=== PATIENT | male | born 1955 | race Caucasian/White ===

== ENCOUNTER 2021-08-11 09:49 | Emergency (ER) | payer MEDICARE, MEDICAID, SELFPAY ==
[2021-08-11 09:59] VITALS: BP 242/118; PULSE 93; RESP 18; TEMP 36.5; O2SAT 97
--- NOTE | 2021-08-11 10:06 | XRR_ITS ---
PROCEDURE INFORMATION: Exam: XR Chest Exam date and time: 08/11/2021 10:26 AM Age: 65 years old Clinical indication: Other: Accelerated HTN; Patient HX: TIA, left sided weakness TECHNIQUE: Imaging protocol: XR of the chest. Views: 1 view. COMPARISON: No relevant prior studies available. FINDINGS: Lungs: Unremarkable. No consolidation. Pleural spaces: Unremarkable. No pleural effusion. No pneumothorax. Heart/Mediastinum: Unremarkable. No cardiomegaly. Bones/joints: Unremarkable. XR/XR chest 1V portable [id number] IMPRESSION: No acute findings.
--- NOTE | 2021-08-11 10:06 | ECG_ITS ---
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 Measurements Intervals [place] Rate: 98 P: 39 NE: 159 QRS: 1 QRSD: 94 T: 143 QT: 366 QTc: 468 Interpretive Statements SINUS RHYTHM LEFT VENTRICULAR HYPERTROPHY AND ST-T CHANGE [VOLTAGE CRITERIA PLUS ST/T ABNORMALITY] No previous ECG available for comparison Electronically Signed On 08-11-2021 16:24:10 CDT by Beck Hale M.D. [id number]
--- NOTE | 2021-08-11 10:06 | CT_ITS ---
WS: [id number] CT HEAD TECHNIQUE: Noncontrast CT of the head obtained from the skullbase to the vertex. CLINICAL INFORMATION: Symptoms of Acute Stroke COMPARISON: CT September 02, 2017 DLP: 987.[address] scans at [facility] use at least one of these dose optimization techniques: automated e xposure control; mA and/or kV adjustment per patient size (includes targeted exams where dose is matc hed to clinical indication); or iterative reconstruction. FINDINGS: No evidence of intracranial hemorrhage or mass effect. Ventricular system and basal cisterns are bahena nt. Moderate small vessel changes with mild parenchymal volume loss. No extra-axial fluid collections . No evidence of mass or mass effect. Intracranial vascular calcification. Chronic lacunar infarcts i n the LEFT greater than RIGHT cerebellum. Chronic lacunar infarcts in the RIGHT greater than LEFT bas al ganglia and RIGHT anterior thalamus. Chronic lacunar infarcts in the LEFT greater than RIGHT cereb ellum. Some of these are new since 2018 but have a chronic appearance. 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 Paranasal sinuses and mastoid air cells are well aerated. .Normal visualized soft tissues. CT/CT head wo con* [id number] IMPRESSION: 1. No evidence of intracranial hemorrhage or mass effect. 2. Moderate small vessel changes. Mild parenchymal volume loss. 3. Chronic lacunar infarcts in the RIGHT greater than LEFT basal ganglia and a nterior RIGHT thalamus. Chronic lacunar infarcts in the charla and cerebellum 4. No acute intracranial findings. Notified Luke Mata DO at 08/11/2021 11:10 AM.
[2021-08-11 10:08] VITALS: BP 227/135; PULSE 105; RESP 16; O2SAT 97
[2021-08-11] MEDS: metoprolol tartrate 25 mg Tablet PO (10:14)
[2021-08-11] MEDS: amlodipine 10 mg Tablet PO (10:14)
[2021-08-11 10:17] LABS: Glucose Point of Care 315 mg/dL (70-110)
[2021-08-11 10:17] LABS: Basophils % 0.6 %; Eosinophils # 0.2 10^3/uL (0.0-0.8); Eosinophils % 2.2 %; Hematocrit 50.2 % (42.0-52.0); Hemoglobin 17.8 g/dL (11.7-16.6); Mean Corpuscular HGB Conc 35.5 g/dL (30.0-36.0); Mean Corpuscular Hemoglobin 30.7 pg (28.0-34.0); Mean Corpuscular Volume 86.6 fl (80-94); Mean Platelet Volume 10.9 fL (7.4-10.4); Monocytes # 0.6 10^3/uL (0.2-0.9); Monocytes % 7.7 %; Neutrophils # 4.38 10^3/uL (1.8-7.7); Neutrophils % 60.9 %; Nucleated Red Blood Cells % 0 %; Platelet Count 196 10^3/cmm (130-400); Red Cell Distribution Width 11.9 % (12.1-15.1); White Blood Count 7.2 10^3/uL (4.0-10.0)
[2021-08-11 10:25] LABS: Add Urine Microscopic? NO; Charge for UA Resulting for Rev
[2021-08-11 10:27] LABS: Protein Urine Neg (Negative); Urine Appearance Clear (CLEAR); Urine Color Yellow (Yellow); pH Urine 7 (5-7)
[2021-08-11 10:28] LABS: Bilirubin Urine Neg (Negative); Blood Urine Neg (Negative); Glucose Urine UA 4+ (Normal); Ketones Urine Negative (Negative); Leukocyte Esterase Urine Negative (Negative); Nitrate Urine Negative (Negative); Urobilinogen Urine Norm (Negative)
[2021-08-11 10:36] LABS: Amphetamines Screen Urine Negative (Negative); Barbiturates Screen Urine Negative (Negative); Benzodiazepines Screen Urine Negative (Negative); Cocaine Screen Urine Negative (Negative); Opiate Screen Urine Negative (Negative); PCP Screen Urine Negative (Negative); THC Screen Urine Negative (Negative)
--- NOTE | 2021-08-11 10:52 | PC.PHAR ---
pt states he takes care of his own medications-pt states he use to take lisinopril pt states not taken for a year or so and is unsure of the mg-ext med history doesnt show when last filled-pt states he only takes the medications entered
--- NOTE | 2021-08-11 10:53 | PC.NURSE ---
green top lab redrawn, then pt to CT
[2021-08-11] MEDS: labetalol 5 mg/mL SDV 20mL 10 MG IVP (11:04)
[2021-08-11 11:07] VITALS: BP 193/110; PULSE 77; RESP 17; O2SAT 95
--- NOTE | 2021-08-11 11:50 | ED_ITS ---
HPI - Neuro Symptoms/Deficit General: Chief Complaint: Neuro Symptoms/Deficit Stated Complaint: TIA, LEFT SIDED WEAKNESS, RESOLVED Time Seen by Provider: 08/11/21 09:50 Source: patient Mode of arrival: ambulatory Limitations: no limitations History of Present Illness: 65-year-old male presents emergency room complaining left-sided weakness he states this began somewhere around 7 to 8 days ago. He also states he had a stroke in the past the left with him some residual weakness. He states that this time it is pretty much resolved. He demonstrates good use of the left side on exam. Noted to be using a cell phone with his left hand because his right hand has an IV. Patient is not on any anticoagulants. He states he only takes aspirin occasionally. Onset (ago): day(s) (7-8) Timing confirmed by: spouse Location: left arm and left leg History of same: Yes Severity: moderate Quality: weak Relieving factors: none Exacerbating factors: none On Anticoagulants: No Associated symptoms: Deny chest pain, malaise, nausea or vomiting Treatments Prior to Arrival: none Review of Systems Const: Denies: fever(s), chills, body aches, change in appetite, fatigue or malaise ENMT: Denies: throat pain, ear or mastoid pain, nasal discharge or nasal congestion Card: Denies: chest pain, palpitations, irregular heart rhythm, edema, dyspnea on exertion or orthopnea Resp: Denies: dyspnea, productive cough or non-productive cough GI: Denies: abdominal pain, nausea, vomiting, hematemesis, coffee ground emes is, diarrhea, constipation, bloating, hematochezia or melena : Denies: flank pain, dysuria, urinary frequency or urinary urgency Skin/Breast: Denies: rash or pruritus [facility] PFSH: Medical History CVA (cerebral vascular accident) Hypertension NIH stroke score NIHSS: Level Of Consciousness - 1a: 0 Level Of Consciousness Questions - 1b: Both Correct Level Of Consciousness Commands - 1c: Both Correct Best G aze - 2: Normal Visual Monahan - 3: No Visual Loss Facial Palsy - 4: Normal Motor Arm Right - 5: No Drift Motor Arm Left - 5: No Drift Motor Leg Right - 6: No Drift Motor Leg Left - 6: No Drift Limb Ataxia - 7: Absent Sensory - 8: Mild To Moderate Loss (May be pre-existing from his previous CVA) Best Language - 9: No Aphasia Dysarthia - 10: Normal Extinction And Inattention - 11: 0 Score: Total Score: 1 Physical Exam Const: COMMON NORMALS: no acute distress GENERAL APPEARANCE: cooperative and comfortable ORIENTATION/CONSCIOUSNESS: Yes awake, Yes oriented to person, Yes oriented to place and Yes oriented to time HENMT: COMMON NORMALS: normocephalic, atraumatic and hearing grossly normal bilaterally HEAD & SCALP: normocephalic and atraumatic Neck/C-Spine: COMMON NORMALS: no JVD Resp: COMMON NORMALS: normal respiratory effort, No retractions, No use of accessory muscles and clear to auscultation bilaterally AUSCULTATION: clear to auscultation bilaterally Cardio: COMMON NORMALS: no JVD, regular rate, regular rhythm and No murmurs present (Cardio) RATE: regular rate RHYTHM: regular rhythm GI: COMMON NORMALS: Soft to palpation and No hepatosplenomegaly present AUSCULTATION: Yes normoactive bowel sounds PALPATION: Yes Soft to palpation, No Tenderness to palpation present (GI), No Guarding due to palpation present (GI) and Yes No hepatosplenomegaly present Extremity: COMMON NORMALS: normal to inspection, capillary refill normal, no clubbing, cyanosis or edema, no calf tenderness and no pedal edema Neuro: SENSORIUM/ORIENTATION: Yes oriented to person, Yes oriented to place and Yes oriented to time Skin: COMMON NORMALS: no rashes or lesions noted GENERAL SKIN EXAM: no rashes or lesions noted Course Vital Signs: Vital signs: Vital Signs Temperature 97.7 F 08/11/21 09:59 Pulse Rate 70 08/11/21 14:14 Respiratory Rate 16 08/11/21 14:14 Blood Pressure 187/103 08/11/21 14:14 Pulse Oximetry 97 08/11/21 14:14 MDM - Neuro Symptoms/Deficit Medical Decision Making Suspect patient may have had a new CVA. He is 7 to 8 days since onset of symptoms. Is difficult to score because he is a previous CVA. He is also diabetic his blood pressure is very poorly controlled. Recommended that we put him on observation to further evaluate complete the work-up and initiate treatments for his diabetes hypertension. Patient does not want to stay offered him several times he prefers to go home we will start him on metformin for his diabetes valsartan because he previously had an LAZARA inhibitor cough also will add amlodipine. Start dual platelet therapy with Plavix and aspirin and start him on a statin. Offered a second time for the patient to stay he prefer still prefer to go discharged patient home per his request set him up for a PCP also set him up for outpatient evaluation including MRI echocardiogram 48-hour Holter. He should return if he has any further problems. Medical Records I reviewed the patient's medical records. Lab Data I reviewed the patient's lab results. : 08/11/21 10:04 08/11/21 10:51 Radiology Impressions Chest X-Ray 08/11/21 10:06 IMPRESSION: No acute findings. Head CT 08/11/21 10:06 IMPRESSION: 1. No evidence of intracranial hemorrhage or mass effect. 2. Moderate small vessel changes. Mild parenchymal volume loss. 3. Chronic lacunar infarcts in the RIGHT greater than LEFT basal ganglia and anterior RIGHT thalamus. Chronic lacunar infarcts in the charla and cerebellum 4. No acute intracranial findings. Notified Luke Mata DO at 08/11/2021 11:10 AM. Head/Neck CTA 08/11/21 11:53 IMPRESSION: 1. No significant ICA stenosis bilaterally. Tortuous cervical ICAs. 2. Both vertebral arteries are patent. Proximal basilar artery is patent. 3. Mild stenosis involving the bilateral P1 and P2 segments. Distal vessels remain patent. 4. Mild RIGHT greater than LEFT supraclinoid ICA stenosis. No flow-limiting intracranial stenosis. 5. Asymmetric prominence of the RIGHT palatine tonsil partially visualized. Dental artifact degrades images at the tongue base. Recommend direct visualization. Laboratory Results WBC 7.2 10^3/uL (4.0-10.0) 08/11/21 10:04 RBC 5.80 10^6/uL (4.1-5.3) H 08/11/21 10:04 Hgb 17.8 g/dL (11.7-16.6) H 08/11/21 10:04 Hct 50.2 % (42.0-52.0) 08/11/21 10:04 MCV 86.6 fl (80-94) 08/11/21 10:04 MCH 30.7 pg (28.0-34.0) 08/11/21 10:04 MCHC 35.5 g/dL (30.0-36.0) 08/11/21 10:04 RDW 11.9 % (12.1-15.1) L 08/11/21 10:04 Plt Count 196 10^3/cmm (130-400) 08/11/21 10:04 MPV 10.9 fL (7.4-10.4) H 08/11/21 10:04 Neut % (Auto) 60.9 % 08/11/21 10:04 Lymph % (Auto) 28.0 % 08/11/21 10:04 [place] % (Auto) 7.7 % 08/11/21 10:04 Eos % (Auto) 2.2 % 08/11/21 10:04 Baso % (Auto) 0.6 % 08/11/21 10:04 Neut # (Auto) 4.38 10^3/uL (1.8-7.7) 08/11/21 10:04 Lymph # (Auto) 2.0 10^3/uL (0.8-4.8) 08/11/21 10:04 [place] # (Auto) 0.6 10^3/uL (0.2-0.9) 08/11/21 10:04 Eos # (Auto) 0.2 10^3/uL (0.0-0.8) 08/11/21 10:04 Baso # (Auto) 0.0 10^3/uL (0.0-0.1) 08/11/21 10:04 Nucleated RBC % (auto) 0 % 08/11/21 10:04 Nucleated RBCs # 0.0 /100WBC 08/11/21 10:04 PT 13.90 SECONDS (12.1-14.9) 08/11/21 12:22 INR 1.04 (0.8-1.2) 08/11/21 12:22 APTT 26.7 SECONDS (23.9-36.7) 08/11/21 12:22 Sodium 135 mmol/L (136-145) L 08/11/21 10:51 Potassium 3.8 mmol/L (3.5-5.1) 08/11/21 10:51 Chloride 99 mmol/L (98-107) 08/11/21 10:51 Carbon Dioxide 25 mmol/L (22-29) 08/11/21 10:51 Anion Gap 14.8 (5-19) 08/11/21 10:51 BUN 8 mg/dL (8-23) 08/11/21 10:51 Creatinine 0.7 mg/dL (0.7-1.2) 08/11/21 10:51 GFR Calculation 113.9 mL/min (90-130) 08/11/21 10:51 Glucose 306 mg/dL (65-115) H 08/11/21 10:51 POC Glucose 315 mg/dL (70-110) H 08/11/21 10:14 Calculated Osmolality 290 mOsm/kg (285-295) 08/11/21 10:51 Calcium 8.8 mg/dL (8.5-10.5) 08/11/21 10:51 Total Bilirubin 0.8 mg/dL (0.15-1.2) 08/11/21 10:51 AST 11 U/L (0-40) 08/11/21 10:51 ALT 9 U/L (0-41) 08/11/21 10:51 Alkaline Phosphatase 103 IU/L (40-130) 08/11/21 10:51 Total Protein 7.8 g/dL (6.6-8.7) 08/11/21 10:51 Albumin 4.3 g/dL (3.5-5.2) 08/11/21 10:51 Globulin 3.5 g/dL (1.3-4.6) 08/11/21 10:51 Urine Color Yellow (Yellow) 08/11/21 10:23 Urine Appearance Clear (CLEAR) 08/11/21 10:23 Urine pH 7 (5-7) 08/11/21 10:23 Ur Specific [place] 1.010 (1.005-1.030) 08/11/21 10:23 Urine Protein Neg (Negative) 08/11/21 10:23 Urine Glucose (UA) 4+ (Normal) H 08/11/21 10:23 Urine Ketones Negative (Negative) 08/11/21 10:23 Urine Blood Neg (Negative) 08/11/21 10:23 Urine Nitrate Negative (Negative) 08/11/21 10:23 Urine Bilirubin Neg (Negative) 08/11/21 10:23 Urine Urobilinogen Norm mg/dL (Negative) 08/11/21 10:23 Ur Leukocyte Esterase Negative (Negative) 08/11/21 10:23 Urine Opiates Screen Negative ng/mL (Negative) 08/11/21 10:23 Ur Barbiturates Screen Negative ng/mL (Negative) 08/11/21 10:23 Ur Phencyclidine Scrn Negative ng/mL (Negative) 08/11/21 10:23 Ur Amphetamines Screen Negative ng/mL (Negative) 08/11/21 10:23 U Benzodiazepines Scrn Negative ng/mL (Negative) 08/11/21 10:23 Urine Cocaine Screen Negative ng/mL (Negative) 08/11/21 10:23 U Marijuana (THC) Screen Negative ng/mL (Negative) 08/11/21 10:23 Discharge Plan Discharge Patient Disposition: Home Clinical Impression: CVA (cerebral vascular accident), Diabetes mellitus, Hypertension Condition: Stable Prescriptions: New metformin 500 mg tablet 500 mg PO BID Qty: 60 0RF Diovan 80 mg tablet 80 mg PO DAILY Qty: 30 0RF amlodipine 10 mg tablet 10 mg PO DAILY Qty: 30 0RF Plavix 75 mg tablet 75 mg PO DAILY Qty: 30 0RF atorvastatin 40 mg tablet 40 mg PO DAILY Qty: 30 0RF aspirin 81 mg tablet,delayed release (DR/EC) 81 mg PO DAILY Qty: 30 0RF No Action Aspir-81 81 mg Tablet,Delayed Release (Dr/Ec) 81 mg PO QAM 0RF ginkgo biloba 1 tab PO QAM 0RF Discharge Orders: Discharge ED (Routine); Ordered 08/11/21 Ordered By: Luke Mata Discharge Diet: Usual diet Discharge Activity: Limit activity as instructed Patient Instructions: Opioid Safety Activity Restrictions/Additional Instructions: 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 They also schedule an outpatient echocardiogram MRI of the head Holter monitor. You need to establish with a primary care doctor to make maintain control of your blood pressure and treat your diabetes. If you have any worsening or change symptoms feel free to return to the emergency room at any time. Coding Level of Care Code ED Slasher Operator for Johnny Hernandez Exam Comprehensive
--- NOTE | 2021-08-11 11:53 | CT_ITS ---
WS: [id number] CTA HEAD AND NECK TECHNIQUE: Contrast enhanced CTA of the head and neck with coronal and sagittal reformatted images an d maximum intensity projection (MIP) images. NASCET criteria utilized. CLINICAL INFORMATION: TIA COMPARISON: None. DLP: 1954.[address] scans at [facility] use at least one of these dose optimization techniques: automated e xposure control; mA and/or kV adjustment per patient size (includes targeted exams where dose is matc hed to clinical indication); or iterative reconstruction. FINDINGS: RIGHT: RIGHT common carotid artery is patent. Mild calcified atheromatous plaque RIGHT carotid bulb e xtending into the ICA. No significant RIGHT ICA stenosis. Tortuous RIGHT cervical ICA. RIGHT cervical ICA is patent to the skull base. LEFT: LEFT common carotid artery is patent. No significant LEFT ICA stenosis. Mild atheromatous plaqu e LEFT carotid bulb extending into the ICA. Tortuous LEFT cervical ICA. LEFT ICA is patent to the sku ll base. INTRACRANIAL CTA: Codominant and patent vertebral arteries bilaterally. Proximal basilar artery is patent. Mild atherom atous disease Bilateral proximal posterior cerebral arteries. Distal arteries remain patent. Basilar artery is patent. Both ICAs are patent at the skull base. Cavernous carotid calcification. Mild RIGHT greater than LEFT supraclinoid ICA stenosis. Normal vascularity to the JOAQUÍN and MCA territories bilaterally. No flow-li miting stenosis. Patent anterior communicating artery. Paranasal sinuses and mastoid air cells well aerated. Normal posterior nasopharynx. Dental artifact d egrades images at the tongue base. Prominent asymmetric RIGHT palatine tonsil. Recommend direct visua lization. Normal parapharyngeal fat. Chronic lacunar infarcts in the bilateral basal ganglia RIGHT greater than LEFT, anterior thalamus, a nd LEFT greater than RIGHT cerebellum. CT/CT angio headneck* [id number] IMPRESSION: 1. No significant ICA stenosis bilaterally. Tortuous cervical ICAs. 2. Both vertebral arteries are patent. Proximal basilar artery is patent. 3. Mild stenosis involving the bilateral P1 and P2 segments. Distal vessels re main patent. 4. Mild RIGHT greater than LEFT supraclinoid ICA stenosis. No flow-limiting in tracranial stenosis. 5. Asymmetric prominence of the RIGHT palatine tonsil partially visualized. De ntal artifact degrades images at the tongue base. Recommend direct visualizatio n.
[2021-08-11 12:09] LABS: Alanine Aminotransferase 9 U/L (0-41); Albumin Level 4.3 g/dL (3.5-5.2); Alkaline Phosphatase 103 IU/L (40-130); Anion Gap 14.8 (5-19); Aspartate Amino Transferase 11 U/L (0-40); Blood Urea Nitrogen 8 mg/dL (8-23); Calcium 8.8 mg/dL (8.5-10.5); Carbon Dioxide 25 mmol/L (22-29); Chloride 99 mmol/L (98-107); Globulin 3.5 g/dL (1.3-4.6); Glomerular Filtration Rate 113.9 mL/min (90-130); Glucose 306 mg/dL (65-115); Osmolality Calculated 290 mOsm/kg (285-295); Potassium 3.8 mmol/L (3.5-5.1); Sodium 135 mmol/L (136-145); Total Bilirubin 0.8 mg/dL (0.15-1.2); Total Protein 7.8 g/dL (6.6-8.7)
[2021-08-11 12:45] LABS: INR 1.04 (0.8-1.2); Partial Thromboplastin Time 26.7 SECONDS (23.9-36.7)
[2021-08-11 14:14] VITALS: BP 187/103; PULSE 70; RESP 16; O2SAT 97
--- NOTE | 2021-08-13 10:29 | DCPLANNER ---
software implementation project manager had message to speak with patient about getting established with a primary care physician. software implementation project manager called patient, unable to speak with patient or leave voicemail for patient.
== END 2021-08-11 14:17 | disposition home or self-care (01) ==
PROVIDERS: Emergency Provider Family Medicine
DX: I63.9 Cerebral infarction, unspecified (principal); E11.9 Type 2 diabetes mellitus without complications; I10 Essential (primary) hypertension; Z79.02 Long term (current) use of antithrombotics/antiplatelets
CPT/HCPCS: 36416; 70450; 70496; 70498; 71045; 80053; 80306; 81003; 82962; 85025; 85610; 85730; 93005; 96374; 99285; J3490; Q9967